=== PATIENT | male | born 1935 | race Caucasian/White ===

== ENCOUNTER → 2016-09-26 | Outpatient (REF) | payer BC | LOC: M LAB REF 15:47 | PROVIDERS: ATTEND Physician Assistant | DX: J02.9 Acute pharyngitis, unspecified (principal) ==

== ENCOUNTER 2022-08-14 02:05 | Emergency (ER) | payer BC, MEDICARE ==
[~2022-08-14] VITALS: Ht 182.9 cm; Wt 74.1 kg
[2022-08-14] MEDS ORDERED: diazePAM 10MG/2ML SYRINGE IV ONE (02:20)
[2022-08-14 03:15] LABS: HEMATOCRIT 40.1 % (42.0-52.0); HEMOGLOBIN 13.4 g/dl (13.5-17.5); MEAN CORPUSCULAR HEMOGLOBIN 32.1 pg (27.0-33.0); MEAN CORPUSCULAR HGB CONC 33.4 g/dl (32.0-36.5); MEAN CORPUSCULAR VOLUME 96.2 fl (80.0-96.0); PLATELET COUNT, AUTOMATED 132 10^3/uL (150-450); RED BLOOD COUNT 4.17 10^6/uL (4.30-6.10)
[2022-08-14 03:27] LABS: BLOOD UREA NITROGEN 30 MG/DL (9-23); CALCIUM LEVEL 7.7 MG/DL (8.3-10.6); CARBON DIOXIDE LEVEL 24 MMOL/L (20-31); CHLORIDE LEVEL 110 MMOL/L (98-107); CREATININE FOR GFR 0.98 MG/DL (0.70-1.30); GLOMERULAR FILTRATION RATE > 60.0 (>35); GLUCOSE, FASTING 116 MG/DL (74-106); POTASSIUM SERUM 4.5 MMOL/L (3.5-5.1); SODIUM LEVEL 141 MMOL/L (136-145)
[2022-08-14 04:45] VITALS: BP 118/66
[2022-08-14] MEDS ORDERED: CYCL7.5T32 PO (05:21)
[2022-08-15] MEDS ORDERED: UNRESOLVED CLARIFICATION ENTRY XX SCH (00:01)
== END 2022-08-14 06:24 | disposition home or self-care (01) ==
LOC: EDBD 02:05 → M ED 02:05
DX: M16.12 Unilateral primary osteoarthritis, left hip (principal); S76.212A Strain of adductor muscle, fascia and tendon of left thigh, initial encounter; I10 Essential (primary) hypertension; Z85.46 Personal history of malignant neoplasm of prostate; Z92.21 Personal history of antineoplastic chemotherapy; Z92.3 Personal history of irradiation; H91.90 Unspecified hearing loss, unspecified ear; Z79.01 Long term (current) use of anticoagulants; Z79.899 Other long term (current) drug therapy
CPT/HCPCS: 73502; 80048; 85027; 86140; 96374; 99284; J3360

== ENCOUNTER 2022-09-16 17:52 | Inpatient (IN) | payer MEDICARE, BC ==
[~2022-09-16] VITALS: Ht 177.8 cm; Wt 77.3 kg
[~2022-09-16 17:52] MED LIST: CYCL7.5T32 PO
[2022-09-16 19:08] LABS: BASO % 0.6 % (0.0-1.0); HEMATOCRIT 37.7 % (42.0-52.0); HEMOGLOBIN 12.7 g/dl (13.5-17.5); LYMPH # 0.8 10^3/uL (1.5-5.0); LYMPH % 12.1 % (24.0-44.0); MEAN CORPUSCULAR HEMOGLOBIN 32.5 pg (27.0-33.0); MEAN CORPUSCULAR HGB CONC 33.7 g/dl (32.0-36.5); MEAN CORPUSCULAR VOLUME 96.4 fl (80.0-96.0); MONO % 15.1 % (2.0-8.0); NEUTROPHILS # 4.6 10^3/uL (1.5-8.5); NEUTROPHILS % 71.7 % (36.0-66.0); PLATELET COUNT, AUTOMATED 108 10^3/uL (150-450); RED BLOOD COUNT 3.91 10^6/uL (4.30-6.10); WHITE BLOOD COUNT 6.4 10^3/uL (4.0-10.0)
[2022-09-16] MEDS ORDERED: NS 1,000 ML IV ONE (19:10)
[2022-09-16 19:29] LABS: ALBUMIN 3.3 G/DL (3.2-5.2); ALKALINE PHOSPHATASE 88 U/L (46-116); ALT/SGPT 60 U/L (7.0-40); AST/SGOT 53 U/L (<34); BILIRUBIN,DIRECT 0.4 MG/DL (<0.4); BILIRUBIN,TOTAL 0.9 MG/DL (0.3-1.2); BLOOD UREA NITROGEN 24 MG/DL (9-23); CALCIUM LEVEL 8.1 MG/DL (8.3-10.6); CARBON DIOXIDE LEVEL 25 MMOL/L (20-31); CHLORIDE LEVEL 105 MMOL/L (98-107); CREATININE FOR GFR 1.05 MG/DL (0.70-1.30); GLOMERULAR FILTRATION RATE > 60.0 (>35); GLUCOSE, FASTING 115 MG/DL (74-106); SODIUM LEVEL 136 MMOL/L (136-145); TOTAL PROTEIN 5.5 G/DL (5.7-8.2)
[2022-09-16 19:32] LABS: INR 1.2; PROTHROMBIN TIME 15.5 SECONDS (12.5-14.5)
[2022-09-16 19:33] LABS: PARTIAL THROMBOPLASTIN TIME 32.5 SECONDS (24.8-34.2)
[2022-09-16 19:33] LABS: THYROID STIMULATING HORMONE 0.473 uIU/ML (0.55-4.78)
[2022-09-16] MEDS ORDERED: MOM 30ML SUSPENSION UDC PO PRN (21:45)
[2022-09-16] MEDS ORDERED: ELIQ2.5T PO (22:32)
[2022-09-16] MEDS ORDERED: FLOM0.4C39 PO (22:32)
[2022-09-16] MEDS ORDERED: AMLO1TAB24 PO (22:32)
[2022-09-16] MEDS ORDERED: VITA100054 PO (22:32)
[2022-09-16] MEDS ORDERED: FERR32TA PO (22:32)
[2022-09-16] MEDS ORDERED: HOME MED LIST COMPLETE! XX SCH (22:35)
[2022-09-16 23:51] VITALS: BP 121/69
[2022-09-17] MEDS ORDERED: IBUPROFEN 400MG TAB PO PRN
[2022-09-17] MEDS: ACETAMINOPHEN TAB 650MG DOSE (2X325MG) PO PRN ×2 (00:10→20:19)
[2022-09-17] MEDS: TAMSULOSIN 0.4 MG CAP PO SCH ×2 (00:13→20:19)
[2022-09-17 04:39] VITALS: BP 108/64
[2022-09-17 07:20] LABS: HEMATOCRIT 37.5 % (42.0-52.0); HEMOGLOBIN 12.6 g/dl (13.5-17.5); MEAN CORPUSCULAR HEMOGLOBIN 32.9 pg (27.0-33.0); MEAN CORPUSCULAR HGB CONC 33.6 g/dl (32.0-36.5); MEAN CORPUSCULAR VOLUME 97.9 fl (80.0-96.0); PLATELET COUNT, AUTOMATED 114 10^3/uL (150-450); RED BLOOD COUNT 3.83 10^6/uL (4.30-6.10); WHITE BLOOD COUNT 6.2 10^3/uL (4.0-10.0)
[2022-09-17 07:46] LABS: ALBUMIN 2.9 G/DL (3.2-5.2); ALKALINE PHOSPHATASE 81 U/L (46-116); ALT/SGPT 53 U/L (7.0-40); AST/SGOT 46 U/L (<34); BILIRUBIN,TOTAL 0.7 MG/DL (0.3-1.2); BLOOD UREA NITROGEN 22 MG/DL (9-23); CARBON DIOXIDE LEVEL 29 MMOL/L (20-31); CHLORIDE LEVEL 106 MMOL/L (98-107); CREATININE FOR GFR 0.99 MG/DL (0.70-1.30); GLOMERULAR FILTRATION RATE > 60.0 (>35); GLUCOSE, FASTING 79 MG/DL (74-106); POTASSIUM SERUM 4.4 MMOL/L (3.5-5.1); SODIUM LEVEL 142 MMOL/L (136-145); TOTAL PROTEIN 5.1 G/DL (5.7-8.2)
[2022-09-17] MEDS: amLODIPine 5 MG TAB PO SCH ×2 (09:00→21:00)
[2022-09-17] MEDS ORDERED: REMDESIVIR 200 MG in NS 250 ML IV ONE (10:00)
[2022-09-17] MEDS: DOCUSATE SODIUM 100MG CAPSULE PO SCH ×2 (10:18→20:19)
[2022-09-17] MEDS: APIXABAN 2.5 MG TAB (ELIQUIS) PO SCH ×2 (10:21→20:19)
[2022-09-17] MEDS ORDERED: SODIUM CHLORIDE 0.9% INJ 10 ML SYR IV ONE (12:00)
[2022-09-17 14:45] VITALS: BP 111/66
[2022-09-17 20:15] VITALS: BP 101/74
[2022-09-18 06:00] VITALS: BP 134/92
[2022-09-18 07:10] LABS: ALBUMIN 3.2 G/DL (3.2-5.2); BILIRUBIN,DIRECT 0.2 MG/DL (<0.4); BILIRUBIN,TOTAL 0.6 MG/DL (0.3-1.2); TOTAL PROTEIN 5.6 G/DL (5.7-8.2)
[2022-09-18] MEDS ORDERED: NIRM1TAB6 PO (07:55)
[2022-09-18 09:18] VITALS: BP 134/91
[2022-09-18] MEDS: APIXABAN 2.5 MG TAB (ELIQUIS) PO SCH (09:18)
[2022-09-18] MEDS: amLODIPine 5 MG TAB PO SCH (09:18)
[2022-09-18] MEDS: DOCUSATE SODIUM 100MG CAPSULE PO SCH (09:18)
[2022-09-18] MEDS ORDERED: REMDESIVIR 100 MG in NS 250 ML IV SCH (10:00)
[2022-09-18] MEDS ORDERED: SODIUM CHLORIDE 0.9% INJ 10 ML SYR IV SCH (11:00)
== END 2022-09-18 12:05 | disposition home health service (06) | DRG 179 ==
LOC: EDBD 17:52 → M ED 21:33 → M ED INP 21:43 → ENRESERV 23:22 → M MS5PR 23:42
PROVIDERS: ADMIT Family Medicine; ATTEND General Practice
PROC: XW033E5 Introduction of Remdesivir Anti-infective into Peripheral Vein, Percutaneous Approach, New Technology Group 5 (ICD-10-PCS; principal; 2022-09-17)
DX: U07.1 COVID-19 (principal); I48.91 Unspecified atrial fibrillation; I10 Essential (primary) hypertension; N40.0 Benign prostatic hyperplasia without lower urinary tract symptoms; R29.6 Repeated falls; M25.562 Pain in left knee; M85.80 Other specified disorders of bone density and structure, unspecified site; M48.02 Spinal stenosis, cervical region; R53.81 Other malaise; Z85.46 Personal history of malignant neoplasm of prostate; Z96.652 Presence of left artificial knee joint; Z92.21 Personal history of antineoplastic chemotherapy; Z90.49 Acquired absence of other specified parts of digestive tract; Z79.899 Other long term (current) drug therapy